=== PATIENT | female | born 1950 | race Caucasian/White ===

== ENCOUNTER → 2017-09-05 | Outpatient (CLI) | payer MEDICARE, BC | LOC: LAB 16:36 | PROVIDERS: ATTEND Internal Medicine | DX: I42.9 Cardiomyopathy, unspecified (principal) | CPT/HCPCS: 36415; 82040; 82247; 82310; 82374; 82435; 82565; 82947; 84075; 84132; 84155; 84295; 84450; 84460; 84520 ==

== ENCOUNTER 2018-09-25 14:00 | Outpatient (RCR) | payer MEDICARE, BC ==
[2018-06-30 13:37] VITALS: BP 144/62
[2018-06-30 13:38] VITALS: BP 132/58
--- NOTE | 2018-06-30 14:38 | CARDIAC REHAB PLAN OF CARE ---
Physician: Robin Root MD Patient is being seen: Dre Kristy SAGASTUME Medical Diagnosis: Ischemic Cardiomyopathy Date of Onset: 10/24/17 Date of Initial Evaluation: 06/30/08 INTERVENTIONS: Due Date: 07/31/18 Patient Assessment: Patient is a 68 yr old female who comes to cardiac rehab following a recent diagnosis of ischemic cardiomyopathy as a following effect from her 2017 stent x 3 placement. She has significant health history, positive for Type I Diabetes, Obesity (BMI: 42kg/m2), high blood pressure, high cholesterol, and sleep apnea. She has significant neuropathy in her lower extremities that limits the duration of her physical activity. She has a significant family history for CVD as both her parents have had either a stroke or heart attack in their early 50s. She is highly motivated to attend CR, and plan to attend the 2:00pm alongside her . Her primary goal is to improve her cardiorespiratory fitnessmeaning overall stamina, LVEF, and shortness of breath. Secondarily, she would like to lose weight. Exercise Assessment: Patient has recently been mostly sedentary. She used to do aerobic activities at the [facility], but has not been there in the past few months. During her 6MWT, the patient walked a total of 1200ft for an average speed of 2.27mph. While testing exercise equipment, she chose the airdyne, elliptical, and arm ergometer and expresses interest in using a wide variety of machinery. Her SPO2 remained saturated above 90% for the majority of the exercise performed with a HR zone between 95-120bpm. Her blood pressure response with exercise was WNL, rising to 158/60mmHg. Exercise Plan Goals: First goal will be to increase duration, aiming to achieve 40+ minutes/session on average of continuous aerobic exercising. Second goal will be to increase intensity both by increasing THR zone and overall MET level. Exercise Prescription: Frequency: 3 days/week (MWF) Duration: 20-30 minutes at first, aiming to achieve 40+ minutes/session by the end of the month Intensity: 100-120bpm; 3.0-4.0 METs Type: Airdyne, Ellitpical, Arm Ergometer, Treadmill. Exercise Reassessment (Date: ) Exercise Discharge/Follow-Up (Date: ) Nutrition Assessment: Patient is a diagnosed Type I Diabetic and has been for approximately 50yrs. She has a foundational understanding of basic nutrition and is currently following a low-carbohydrate diet and manages her blood sugars regularly throughout the day. Her biggest concern is losing weight. Her goal is to lose weight via increasing caloric expenditure and decreasing slightly caloric intake. Nutrition Plan Goals: To lose 5% body mass (approx. 11lbs) Intervention: Find ways to increase caloric expenditure outside of cardiac rehab in addition to the exercise she performs here as well as decrease intake via small dietary changes. Education: Food journaling will help to determine which intake foods can be adjusted. Nutrition Reassessment (Date: ) Nutrition Discharge/Follow-Up (Date: ) Psychosocial Assessment: Ginny has strong positive emotional and social health status. She scored low on both HADS scales (5/21 for depression and 4/21 for anxiety). She is positive and light hearted in mood. She has a strong support system at home to help her with her goals as her is in CR as well. Together they plan to support eachother and accomplish their health goals side by side. Psychosocial Plan Goals: To maintain positive social health and foster healthy relationships Intervention: We will create a safe exercise and learning environment and work with both her and her towards goal achievement. Education: Education will focus on how exercise and social interaction and benefit both body and mind as a person ages. Psychosocial Reassessment (Date: ) Psychosocial Discharge/Follow-Up (Date: ) FLYNN
[2018-07-03 17:30] VITALS: BP 154/64
[2018-07-03 17:31] VITALS: BP 118/58
[2018-07-05 16:30] VITALS: BP 134/50
[2018-07-05 16:32] VITALS: BP 118/54
[2018-07-08 09:07] VITALS: BP 124/50
[2018-07-08 09:08] VITALS: BP 118/54
[2018-07-10 15:17] VITALS: BP 142/70
[2018-07-10 15:19] VITALS: BP 140/66
[2018-07-12 16:35] VITALS: BP 118/64
[2018-07-12 16:37] VITALS: BP 120/50
[2018-07-14 17:32] VITALS: BP 116/52
[2018-07-14 17:34] VITALS: BP 114/56
[2018-07-17 17:05] VITALS: BP 130/70
[2018-07-17 17:06] VITALS: BP 120/62
[2018-07-19 17:00] VITALS: BP_SYST 118; BP_SYST 128; BP_DIAS 54; BP_DIAS 58
[2018-07-21 16:20] VITALS: BP 136/54
[2018-07-21 16:21] VITALS: BP 116/50
--- NOTE | 2018-07-28 10:00 | CARDIAC REHAB PLAN OF CARE ---
Physician: Robin Root MD Patient is being seen: Dre Kristy MS Medical Diagnosis: Ischemic Cardiomyopathy Date of Onset: 10/24/18 Date of Initial Evaluation: 06/30/18 Date patient was last seen: 07/21/18 Number of treatments: 11 Number of cancellations/No Shows: 1 INTERVENTIONS: Due Date: 08/27/18 Exercise Reassessment (Date: 07/28/18): Patient has attended regularly to her exercises sessions, and on average performs 30-35min/session. She has maintained her THR zone, averaging 105-110bpm. She is highly motivated to exercise and likes changing her routine, which she benefits from with muscle confusion. Over the next month, the patient will aim to set and achieve goals in the following area: 1.Increase durationideally we would like to see her achieve at least 40 minutes of continuous exercise. 2.Increase intensity. Currently, she is averaging around 3.0 METs and we would like to see this slowly increase over her time spent in the CR program. We will talk to the patient and help her set individualized goals along these lines. Nutrition Reassessment (Date: 07/28/18): We will weigh the patient today to see how her weight loss goals are progressing. She has been struggling with blood sugar control. Her BS will typically drop upwards of 100mg/dL from beginning to end of exercise. We plan to talk to her about her insulin dosage before exercising and her dietary choices prior to exercisinghoping to get her to eat more protein to help stabilize those number. Psychosocial Reassessment (Date: 07/28/18): Patient maintains a high level of emotional and social well-being. She is motivated to regularly attend her sessions and to exercise at a moderate level when she is here. Her support system maintains healthy and strong as she attends her exercise sessions with her . Patient does appear relatively set in her beliefs about certain foods and her health status (as far as her T1D), but providing educational material and resources does provide an avenue for us to talk to her about different subjects. FLYNN
[2018-07-28 18:11] VITALS: BP 132/58
[2018-07-28 18:13] VITALS: BP 110/48
[2018-08-02 17:09] VITALS: BP 122/68
[2018-08-02 17:10] VITALS: BP 108/58
[2018-08-04 15:16] VITALS: BP 132/48
[2018-08-04 15:17] VITALS: BP 122/48
[2018-08-09 16:00] VITALS: BP 134/52
[2018-08-09 16:01] VITALS: BP 138/54
[2018-08-11 16:04] VITALS: BP 120/48
[2018-08-11 16:05] VITALS: BP 104/45
[2018-08-14 17:07] VITALS: BP 124/56
[2018-08-14 17:09] VITALS: BP 128/52
[2018-08-16 16:08] VITALS: BP 132/52
[2018-08-16 16:09] VITALS: BP 116/50
[2018-08-18 15:32] VITALS: BP 142/60
[2018-08-18 15:33] VITALS: BP 126/50
[2018-09-13 16:27] VITALS: BP 132/52
[2018-09-13 16:28] VITALS: BP 120/58
[2018-09-15 16:25] VITALS: BP 138/50
[2018-09-15 16:26] VITALS: BP 132/56
[2018-09-18 16:14] VITALS: BP_SYST 114; BP_SYST 132; BP_DIAS 68; BP_DIAS 76
[2018-09-20 14:14] VITALS: BP 120/54
[2018-09-20 14:15] VITALS: BP 116/48
--- NOTE | 2018-09-21 08:53 | CARDIAC REHAB PLAN OF CARE ---
Physician: Robin Root MD Patient is being seen: Kristy Erickson MS Medical Diagnosis: Ischemic Cardiomyopathy Date of Onset: 10/24/17 Date of Initial Evaluation: 06/30/18 Date patient was last seen: 09/20/18 Number of treatments: 24 Number of cancellations/No Shows: 11 INTERVENTIONS: Due Date: 10/22/18 The patient returns to CR after more than a month away from exercise. She reported having several health issues within the past month, including the flu, bronchitis, and a boil that was causing discomfort. She has now returned and reports feeling much better, but is easing herself back into exercising regularly at our request. Exercise Reassessment (09/21/18): Since returning to CR, the patient is achieving 35 minutes/session on average. The patient has a habit of not spending too much time on one machine at a time (max of 10 minutes) before switching to a new machine. This barely allows her heart rate to equalize before it is allowed to slow down again. Two sessions ago, we recommended she spend most of her time between 2 machines and she has obliged since there. This more moderate intensity, continuous exercise will help her increase her stamina and improve her cardiovascular strength and fitness. Goals for the next month include: Increasing duration of exercise to 45 minutes/session with minimal breaks in between machines. We want her to keep her METs below 3.5 until she has achieved this goal. Nutrition Reassessment (09/21/18): Patient has experienced some change in glucose regulation in the past few sessions. Prior to her absence, she regularly came in with glucose in the mid-hundreds and would drop 40-60 by the end of exercise. There have been two instances recently where she came in with very low glucose levels (60-70), to which it was unsafe for her to exercise. We monitored her as she ate candy, but after an hour her levels would not rise. She reports this happens from time to time, but it has been more frequent lately. On normal days, her glucose levels appear to be dropping less significantly (only 30 lower by the end of exercise) which may demonstrate that exercise may be helping her regulate better. The patient is defensive and resistant to use discussing her blood glucose levels and her dietary intake. We have to tread lightly with this discussion. Psychosocial Reassessment (09/21/18): It is agreed upon by all the cardiac rehab staff that it appears the patient is not motivated to exercise. Her frequency in breaks, lack of consistency on exercise equipment (spending only 5-8 minutes per machine, but switching machines 6 times), and willingness to talk rather than exercise have led us all to this conclusion. This has brought us to encourage the patient to focus on 1 or 2 machines per session and spend more time on them. It is encouraged to develop social connections and improve on emotional/social health while at CR, but physical health is a priority. FLYNN
[2018-09-22 16:42] VITALS: BP 144/54
[2018-09-22 16:43] VITALS: BP 132/56
[2018-09-25 16:32] VITALS: BP 130/46
[2018-09-27 17:43] VITALS: BP 122/60
[2018-09-27 17:44] VITALS: BP 130/60
== END 2018-09-28 ==
LOC: CARD 14:00
PROVIDERS: ATTEND Internal Medicine Cardiovascular Disease
DX: I25.5 Ischemic cardiomyopathy (principal); I25.10 Atherosclerotic heart disease of native coronary artery without angina pectoris; Z95.2 Presence of prosthetic heart valve
CPT/HCPCS: 93798

== ENCOUNTER → 2018-10-12 | Outpatient (CLI) | payer MEDICARE, BC ==
[2018-10-12 09:45] LABS: LDL CHOLESTEROL 102 mg/dl
== END ==
LOC: LAB 09:02
PROVIDERS: ATTEND Family Medicine
DX: E10.319 Type 1 diabetes mellitus with unspecified diabetic retinopathy without macular edema (principal); E78.5 Hyperlipidemia, unspecified
CPT/HCPCS: 36415; 82040; 82247; 82310; 82374; 82435; 82465; 82565; 82947; 83036; 83718; 84075; 84132; 84155; 84295; 84450; 84460; 84478; 84520